=== PATIENT | male | born 2000 | race Caucasian/White ===

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

== ENCOUNTER → 2022-05-21 | Outpatient (REF) | LOC: M PLAIMG 09:39 | PROVIDERS: ATTEND Internal Medicine | DX: R06.02 Shortness of breath (principal); R52 Pain, unspecified ==